=== PATIENT | male | born 1940 | race Caucasian/White ===

== ENCOUNTER 2019-09-21 17:12 | Inpatient (IN) | payer OTHER ==
[~2019-09-21] VITALS: Ht 172.7 cm; Wt 64.9 kg
--- NOTE | 2019-09-21 17:44 | NUR ---
Patient to ER bed 2 to gown for evaluation. Side rails up.
[2019-09-21 17:57] VITALS: BP_SYST 120
--- NOTE | 2019-09-21 17:58 | NUR ---
Patient arrived via ambulance from [facility] for low O2 sat, cough and congestion, confusion, and disorientation. Patient is awake, alert, and oriented x1. He has no complaints. All vital signs are WNL, on room air, no cough noted, all lung aguilar are clear.
--- NOTE | 2019-09-21 18:02 | NUR ---
ER Dr. Lopez at bedside examining patient.
[2019-09-21 18:10] LABS: BASOPHILS # (AUTO) 0.1 K/uL (0.0-0.2); BASOPHILS % (AUTO) 1.5 % (0.0-2.0); EOSINOPHILS # (AUTO) 0.2 K/uL (0.0-0.4); EOSINOPHILS % (AUTO) 2.1 % (0.0-4.0); HEMOGLOBIN 10.8 g/dL (14.0-18.0); LYMPHOCYTES # (AUTO) 3.4 K/uL (1.0-5.5); LYMPHOCYTES % (AUTO) 36.3 % (20.5-51.5); MEAN CORPUSCULAR HEMOGLOBIN 32 pg (27-31); MEAN CORPUSCULAR HGB CONC 34 % (32-36); MEAN CORPUSCULAR VOLUME 94 fL (79.0-98.0); MONOCYTES # (AUTO) 0.5 K/uL (0.0-1.0); MONOCYTES % (AUTO) 5.6 % (1.7-9.3); NEUTROPHILS # (AUTO) 5.2 K/uL (1.8-7.7); NEUTROPHILS % (AUTO) 54.5 % (40.0-70.0); PLATELET COUNT (AUTO) 269 K/uL (130-430); RED BLOOD CELL COUNT(AUTO) 3.42 MIL/uL (4.2-6.2); WHITE BLOOD COUNT (AUTO) 9.5 K/uL (4.8-10.8)
[2019-09-21 18:33] LABS: PROTHROMBIN TIME 9.9 SECS (9.5-12.5)
--- NOTE | 2019-09-21 19:11 | NUR ---
Report given to POOL Mckeon for continuation of care.
--- NOTE | 2019-09-21 19:25 | NUR ---
ASSUMED CARE. RECEIVED ALERT,VERBALLY RESPONSIVE,CONFUSED. AFEBRILE, NOT IN ACUTE DISTRESS. NO PAIN OR DISCOMFORT NOTED. VS STABLE. WILL CONTINUE TO MONITOR.
--- NOTE | 2019-09-21 19:42 | NUR ---
ADMITTED TO TELEMETRY IN-PATIENT STATUS FOR CHF,ELEVATED TROPONIN UNDER THE SERVICE OF . ADMITTING ORDERS GIVEN.
--- NOTE | 2019-09-21 19:45 | NUR ---
A/A/O X4.V/S STABLE.C/O PAIN ON HER IV SITE & D/C. TELE SHOWED SR.INSTRUCTED TO USE CALL LIGHT NEEDED;WITHIN REACH.
[2019-09-21 20:17] LABS: ANION GAP 10 (5-15); CALCIUM 9.7 mg/dL (8.4-11.0); CHLORIDE 104 mmol/L (98-107); CREATININE 1.46 mg/dL (0.55-1.30); SODIUM SERUM 139 mmol/L (136-145); UREA NITROGEN, BLOOD 22 mg/dL (8-21)
[2019-09-21] MEDS ORDERED: LEVO25TA7 PO (20:17)
[2019-09-21] MEDS ORDERED: CYAN100010 PO (20:18)
[2019-09-21] MEDS ORDERED: AMLO5TAB4 PO (20:18)
[2019-09-21] MEDS ORDERED: ASPI-1155 PO (20:18)
[2019-09-21] MEDS ORDERED: METO25TA6 PO (20:19)
[2019-09-21] MEDS ORDERED: LOSA50TA3 PO (20:20)
[2019-09-21] MEDS ORDERED: ACET-73 PO (20:20)
[2019-09-21] MEDS ORDERED: MOM PO (20:21)
[2019-09-21 20:22] LABS: ALANINE AMINOTRANSFERASE 17 U/L (12-78); ALBUMIN 3.1 g/dL (3.4-4.8); ASPARTATE AMINOTRANSFERASE 13 U/L (10-37); TOTAL BILIRUBIN 0.3 mg/dL (0.0-1.0)
[2019-09-21 20:25] LABS: GLUCOSE 32 mg/dL (70-99)
--- NOTE | 2019-09-21 20:28 | NUR ---
LAB.CALLED RE: BLOOD SUGAR=32. AWARE. GAUGE 18 IV LINE ESTABLISHED TO THE RIGHT FOREARM. D50 1 AMP.IVP GIVEN ORDERED.
[2019-09-21] MEDS ORDERED: IPRATROPIUM BROM 0.5 MG/2.5 ML VIAL.NEB (ATROVENT) INH ONE (20:30)
[2019-09-21] MEDS ORDERED: KCL 20 mEq in D5/0.45NS 1000mL 1,000 ML IV ONE (20:30)
[2019-09-21] MEDS ORDERED: ALBUTEROL SULFATE 0.083% 2.5 MG/3 ML VIAL.NEB INH ONE (20:30)
[2019-09-21] MEDS ORDERED: DEXTROSE 50% JECT 50 ML DISP.SYRIN IVP ONE (20:30)
[2019-09-21] MEDS ORDERED: methylPREDNISolone SOD SUCC/PF 62.5 MG/ML VIAL IVP ONE (20:30)
[2019-09-21] MEDS ORDERED: ONDA4TAB5 PO (20:30)
[2019-09-21] MEDS ORDERED: GUAI100L55 PO (20:30)
[2019-09-21] MEDS ORDERED: DEXTROSE 50% JECT 50 ML DISP.SYRIN ONE (20:39)
--- NOTE | 2019-09-21 20:42 | NUR ---
Noni devlin in [facility] - 09/21/19 at 2134 by [email or web address] ADMITTED TO TELEMETRY IN-PATIENT STATUS FOR CHF,ELEVATED TROPONIN UNDER THE SERVICE OF . ADMITTING ORDERS GIVEN.
[2019-09-21] MEDS ORDERED: ALBUTEROL SULFATE 0.083% 2.5 MG/3 ML VIAL.NEB INH PRN (20:45)
[2019-09-21] MEDS ORDERED: INSU100V42 (21:02)
[2019-09-21] MEDS ORDERED: INSU100V SQ (21:02)
[2019-09-21] MEDS ORDERED: DOCU-144 PO (21:05)
[2019-09-21] MEDS ORDERED: RISP0.253 PO (21:06)
[2019-09-21] MEDS ORDERED: MEMA10TA PO (21:07)
[2019-09-21] MEDS ORDERED: GLU850 PO (21:07)
[2019-09-21] MEDS ORDERED: DIPY50TA PO (21:08)
[2019-09-21] MEDS ORDERED: DIPH25CA83 PO (21:08)
[2019-09-21] MEDS ORDERED: ESCI10TA PO (21:09)
[2019-09-21] MEDS ORDERED: DONE10TA44 PO (21:09)
[2019-09-21] MEDS ORDERED: SIMV20TA2 PO (21:10)
[2019-09-21] MEDS ORDERED: NITSL SL (21:10)
--- NOTE | 2019-09-21 21:11 | NUR ---
Medication reconciliation completed with information provided by [facility]. Any prior medication reconciliation on file was reviewed and corrected.
[2019-09-21 21:31] VITALS: BP_SYST 112
--- NOTE | 2019-09-21 21:40 | NUR ---
PHENERGAN PO ADM. COUGHING PRODUCTIVELY WITH THICK YELLOWISH SECRETIONS.
--- NOTE | 2019-09-21 22:00 | NUR ---
IV INSERTED ON HER RIGHT WRIST WITH ANGIO#22 X 1.IVF NS @ 40 ML/HR INFUSING WELL.
--- NOTE | 2019-09-21 22:02 | NUR ---
TRANSFERRED TO FLOOR VIA [facility]. TRANSFER UNEVENTFUL. PT. WENT TO ROOM 106-A. REPORT GIVEN TO TELEMETRY NURSE FREDY LANZA.
--- NOTE | 2019-09-21 22:19 | NUR ---
FINGER STICK BLD SUGAR 110. IVF D51/2 NS +20 MEQ KCL/L @ 100 ML/HR INFUSING WELL.DENIES ANY DISCOMFORT @ THIS TIME. CALL LIGHT WITHIN REACH.
--- NOTE | 2019-09-21 22:25 | NUR ---
ADMIT NOTE Received pt from ER to the floor with a diagnosis of CHF, ELEVATED TORPONIN. Admission process initiated. patient oriented to pain management, safety and call light-Pt is forgetfull, unable to demonstrate.
[2019-09-21 22:27] VITALS: BP_SYST 141
[2019-09-21 22:45] VITALS: BP_SYST 132
[2019-09-21] MEDS ORDERED: cefTRIAXone 1 GM IVPB PREMIX 50 ML IV ONE (23:00)
[2019-09-21] MEDS: cefTRIAXone 1 GM IVPB PREMIX 50 ML IV SCH (23:02)
[2019-09-21] MEDS: NORMAL SALINE 5 ML DISP.SYRIN IVF SCH (23:10)
[2019-09-22] VITALS: BP_SYST 132
--- NOTE | 2019-09-22 | NUR ---
AFEBRILE.TELE SHOWED ATRIAL PACED. NOTED WITH NON PRODUCTIVE COUGH.
[2019-09-22] MEDS: ALBUTEROL SULFATE 0.083% 2.5 MG/3 ML VIAL.NEB INH SCH ×3 (01:12→13:34)
--- NOTE | 2019-09-22 02:00 | NUR ---
REPOSITIONED.FED PT & TOLERATED WELL.
--- NOTE | 2019-09-22 04:00 | NUR ---
RESTING COMFORTABLY IN NO ACUTE DISTRESS.IVF INFUSING WELL.
--- NOTE | 2019-09-22 04:08 | NUR ---
Consultation Paged Reason for Consultation: Elevated Troponin Was consult called: Y Person who was Notified: Marge Consulting Physician: Dr. Kruse Patient Portal Representative Ordering Physician: Dr. Amezquita
[2019-09-22] MEDS: NORMAL SALINE 5 ML DISP.SYRIN IVF SCH ×3 (06:00→20:35)
--- NOTE | 2019-09-22 06:00 | NUR ---
AM CARE DONE RN.REPOSITIONED.CALL LIGHT WITHIN REACH.
--- NOTE | 2019-09-22 07:01 | NUR ---
ENDORSED IN NO ACUTE DISTRESS.SAFETY MAINTAINED.NO S/S OF HYPO/HYPERGLYCEMIA NOTED.
--- NOTE | 2019-09-22 07:34 | NUR ---
Opening Note received bedside SBAR report from night worker RN, patient resting in bed, respiratory therapist at bedside giving patient breathing treatment, respirations even and unlabored, no acute distress noted, educated patient on use of call light and asked to call for assistance, patient verbalized understanding, call light in reach, bed in low and locked position, bed alarm on.
--- NOTE | 2019-09-22 07:40 | NUR ---
Opening Note Received report on pt. Pt is confused and trying to get out of bed. Provided education but pt unable to follow commands for a period of time. IV site intact, patent, with IVF infusing. No signs of acute distress noted.
--- NOTE | 2019-09-22 07:55 | NUR ---
Closing Note bedside SBAR report given to receiving RN, patient resting in bed, respirations even and unlabored on room air, no acute distress noted, educated patient on use of call light and asked to call for assistance, patient verbalized understanding, call light in reach, bed in low and locked position, bed alarm on, care endorsed to Nasrin LANZA.
[2019-09-22 08:00] VITALS: BP_SYST 137
[2019-09-22] MEDS ORDERED: ACETAMINOPHEN 500 MG TABLET PO PRN (08:30)
[2019-09-22] MEDS: risperiDONE 0.25 MG TABLET (RisperDAL) PO SCH ×2 (09:00→20:34)
--- NOTE | 2019-09-22 09:03 | NUR ---
Nutrition Update Gab Scale 15 noted. Pt admitted for CHF, elevated troponin. Diet: mechanical soft BMI: 22 kg/m2 RD to follow per nutrition care standards.
[2019-09-22] MEDS: D5/0.45 NS 1,000 ML IV SCH (10:00)
[2019-09-22] MEDS: CYANOCOBALAMIN 1000 mCg TABLET PO SCH (10:01)
[2019-09-22] MEDS: METOPROLOL TARTRATE 25 MG TABLET PO SCH (10:02)
[2019-09-22] MEDS: ASPIRIN 81 MG TAB.CHEW PO SCH (10:02)
[2019-09-22] MEDS: ENOXAPARIN SODIUM 40 MG/0.4 ML SYRINGE SUBCUT SCH (10:06)
[2019-09-22] MEDS ORDERED: D5W 1,000 ML IV PRN (10:32)
[2019-09-22] MEDS ORDERED: GLUCOSE 15 GM GEL (in 37.5 GM TUBE) PO PRN (10:45)
[2019-09-22] MEDS ORDERED: DEXTROSE 50% JECT 50 ML DISP.SYRIN IVP PRN (10:45)
--- NOTE | 2019-09-22 11:05 | NUR ---
Endorsed plan of care to receiving RN.
[2019-09-22 11:27] VITALS: BP_SYST 103
[2019-09-22 16:40] VITALS: BP_SYST 128
--- NOTE | 2019-09-22 18:05 | NUR ---
Patient appears to be repeating the same phrases frequently, is attempting to get out of bed frequently, and also is having swallowing problems with food or liquids. May need to have intravenous fluid rate adjustment for diagnosis of congestive heart failure. Will endorse care to night registered nurse. Maurice Cameron RN
[2019-09-22 19:00] VITALS: BP_SYST 125
--- NOTE | 2019-09-22 19:07 | NUR ---
Handoff with POOL Gaspar. Maurice Cameron RN
--- NOTE | 2019-09-22 19:15 | NUR ---
change of shift.pt.presents quiescent affect;calm.resting.pt.presents iv access.iv fluids infusing. pt's activity status:bedrest.general status stable.respiratory status;slightly labored.@room air. call light/telephone w/in reach of the pt.
[2019-09-22 20:00] VITALS: BP_SYST 125
--- NOTE | 2019-09-22 20:00 | NUR ---
pt.assessed.v/s assessed values w/in normal limits.pt.presents affect;restless.cardio monitor removed.pt.assessed for cleanliness. pt repositioned.iv access intact;patent iv fluids infusing.general status stable.respiratory status;labored@room air;02-sat% =96%.call light/telephone placed w/in reach of the pt.
--- NOTE | 2019-09-22 20:27 | NUR ---
PAGED I PAGED DR. FABI Méndez @ [phone] I SPOKE WITH JOSE M RDZ
--- NOTE | 2019-09-22 20:29 | NUR ---
PAGING DR DA SILVA. SPOKE WITH EXCHANGE-AWAITING FOR CALL BACK.
[2019-09-22] MEDS: SIMVASTATIN 20 MG TABLET PO SCH (20:34)
[2019-09-22] MEDS: cefTRIAXone 1 GM IVPB PREMIX 50 ML IV SCH (20:35)
--- NOTE | 2019-09-22 21:00 | NUR ---
2100p medications administered.pt.remains affect;restless.;k paged.re;restlessness/agitation. cardio-monitor re-applied.pt.repositioned.
--- NOTE | 2019-09-22 21:59 | NUR ---
PAGED I PAGED DR. FABI Méndez @ [phone] I SPOKE WITH JOSE M RDZ
--- NOTE | 2019-09-22 22:00 | NUR ---
pt.assessed.pt.presents affect;restless/agitation.;diogenes paged.re;restlessness/agitation.pt.assessed for cleanliness.pt.repositioned. iv access intact;patent.cardio-monitor re-applied.general status stable.respiratory status;labored.call light/ telephone placed w/in reach of the pt.
[2019-09-22] MEDS ORDERED: HALOPERIDOL LACTATE 5 MG/ML VIAL IM PRN (22:15)
[2019-09-22] MEDS ORDERED: HALOPERIDOL LACTATE 5 MG/ML VIAL IM ONE (22:15)
--- NOTE | 2019-09-22 22:30 | NUR ---
returned the page.i have apprised of the pt's status,affect;restless/agitation. has ordered aldol;5mg im x1/haldol;5mg im q-6hrs;p:restlessness/agitation.i have administered haldol;5mg im.to f/u re-asses the efficacy of the medication.
--- NOTE | 2019-09-22 22:33 | NUR ---
PAGED I PAGED DR. DUNLAP I SPOKE WITH JOSE M THIS IS THE THIRD CALL
[2019-09-22] MEDS ORDERED: INSULIN ASPART 100 UNITS/ML, 10 ML VIAL (NovoLOG) SUBCUT PRN (22:45)
--- NOTE | 2019-09-23 | NUR ---
pt.assessed.v/s assessed;values w/in normal limits.no c/o pain,nausea.pt.reoriented.cardio monitor re-applied. iv access intact;patent iv fluids infusing.pt assessed for cleanliness.pt.repositioned.general status stable. respiratory status;slightly labored.02-sat%=96%.call light/telephone placed w/in reach of the pt.
[2019-09-23] MEDS: ALBUTEROL SULFATE 0.083% 2.5 MG/3 ML VIAL.NEB INH SCH ×4 (00:31→19:45)
--- NOTE | 2019-09-23 01:30 | NUR ---
ROUNDS Patient is resting in bed, eyes closed, breathing evenly and nonlabored on room air. No s/s of distress at this time, no other needs at this time. Fall/safety precautions, will continue to monitor.
--- NOTE | 2019-09-23 02:00 | NUR ---
pt.assessed.pt.assessed for cleanliness.pt repositioned.iv access intact;patent.cardio monitor re-applied.iv access intact;patent iv fluids infusing.call light/telephone placed w/in reach of the pt.
[2019-09-23 02:36] VITALS: BP_SYST 125
--- NOTE | 2019-09-23 04:00 | NUR ---
pt.assessed.pt.assessed for cleanliness.pt.cleaned.pt.repositioned.cardio-monitor re-applied.no c/o pian,nausea.pt.presents affect;restless.loc;confused.iv access intact;patent;iv fluids infusing.general status stable.i have paged r/t to administer hhn-treatments.call light/telephone placed w/in reach of pt.
[2019-09-23] MEDS: NORMAL SALINE 5 ML DISP.SYRIN IVF SCH ×3 (05:42→21:36)
[2019-09-23] MEDS: D5/0.45 NS 1,000 ML IV SCH ×2 (05:42→23:45)
[2019-09-23] MEDS: LEVOTHYROXINE SODIUM 0.025 MG TABLET PO SCH (05:43)
[2019-09-23] MEDS: INSULIN LISPRO SLIDING SCALE 100 UNITS/ML VIAL (humaLOG) SUBCUT PRN ×3 (06:30→21:50)
--- NOTE | 2019-09-23 06:30 | NUR ---
pt.assessed.pt.assessed for cleanliness.pt.repositioned.i have assessed the blood glucose;value;169mg/dl.i have administered insulin:humalog;2-units.i have administered synthroid;0700a dose.pt.capble to ingest the medication whole w/out difficulty.no c/o pain,nausea.i have changed the iv fluids bag.general status stable.respiratory status stable; unlabored.call light/telephone placed w/in reach of the pt.
[2019-09-23 07:22] LABS: BASOPHILS % (AUTO) 0.4 % (0.0-2.0); EOSINOPHILS % (AUTO) 0.5 % (0.0-4.0); HEMATOCRIT 27.7 % (36-54); HEMOGLOBIN 9.4 g/dL (14.0-18.0); LYMPHOCYTES # (AUTO) 1.8 K/uL (1.0-5.5); LYMPHOCYTES % (AUTO) 19.7 % (20.5-51.5); MEAN CORPUSCULAR HEMOGLOBIN 32 pg (27-31); MEAN CORPUSCULAR HGB CONC 34 % (32-36); MEAN CORPUSCULAR VOLUME 93 fL (79.0-98.0); MONOCYTES # (AUTO) 0.8 K/uL (0.0-1.0); MONOCYTES % (AUTO) 9.1 % (1.7-9.3); NEUTROPHILS # (AUTO) 6.4 K/uL (1.8-7.7); NEUTROPHILS % (AUTO) 70.3 % (40.0-70.0); PLATELET COUNT (AUTO) 237 K/uL (130-430); RED BLOOD CELL COUNT(AUTO) 2.99 MIL/uL (4.2-6.2); RED CELL DISTRIBUTION WIDTH 14.2 % (9.0-15.0); WHITE BLOOD COUNT (AUTO) 9.2 K/uL (4.8-10.8)
[2019-09-23 07:59] LABS: ALANINE AMINOTRANSFERASE 27 U/L (12-78); ALBUMIN 2.9 g/dL (3.4-4.8); ANION GAP 7 (5-15); CALCIUM 9.1 mg/dL (8.4-11.0); CHLORIDE 105 mmol/L (98-107); CREATININE 1.48 mg/dL (0.55-1.30); GLUCOSE 185 mg/dL (70-99); POTASSIUM 4.4 mmol/L (3.5-5.1); SODIUM SERUM 138 mmol/L (136-145); THYROID STIMULATING HORMONE 1.72 uIu/mL (0.36-3.74); TOTAL BILIRUBIN 0.2 mg/dL (0.0-1.0); UREA NITROGEN, BLOOD 28 mg/dL (8-21)
[2019-09-23 08:05] LABS: ASPARTATE AMINOTRANSFERASE 71 U/L (10-37)
[2019-09-23] MEDS: METOPROLOL TARTRATE 25 MG TABLET PO SCH (09:00)
[2019-09-23 09:08] VITALS: BP_SYST 92
[2019-09-23] MEDS: risperiDONE 0.25 MG TABLET (RisperDAL) PO SCH ×2 (11:45→21:35)
[2019-09-23] MEDS: CYANOCOBALAMIN 1000 mCg TABLET PO SCH (11:45)
[2019-09-23] MEDS: ASPIRIN 81 MG TAB.CHEW PO SCH (11:45)
[2019-09-23] MEDS: ENOXAPARIN SODIUM 40 MG/0.4 ML SYRINGE SUBCUT SCH (11:47)
[2019-09-23 12:00] VITALS: BP_SYST 103
--- NOTE | 2019-09-23 15:01 | NUR ---
Dietitian Recommendations * Recommend mechanical soft, CCHO diet w/ nectar thick liquids and Glucerna BID (ONS provides 440 kcal/day, 20 gm protein/day) LP, RD Please refer to Nutrition Assessment for details. Addendum: 09/23/19 at [address] Amended: Links added.
[2019-09-23 16:25] VITALS: BP_SYST 98
--- NOTE | 2019-09-23 18:40 | NUR ---
closing notes no hypo hyperglycemic reaction noted. noted with on and off productive cough still. pt sleeping at intervals. no osb noted. bed to the lowest position . confused at intervals.
--- NOTE | 2019-09-23 19:45 | NUR ---
OPENING NOTES Received report from POOL Alfrde. Patient is sitting in bed, awake, alert, oriented x 1, breathing evenly and nonlabored on room air. Patient has an IV on the right forearm 18g, patent and benign, no s/s of infiltration or infection noted. Educated patient on plan of care, fall/safety precautions, need for a sitter, patient unable to state understanding due to cognitive limitations. Bed is locked, armed, and at lowest position. Will continue to monitor. Addendum: 09/24/19 at 0149 by Cole Gee RN OPENING NOTES Received report from POOL Alfred. Patient is resting in bed, awake, alert, oriented x 1, breathing evenly and nonlabored on room air. Patient has an IV on the right forearm 18g, patent and benign, no s/s of infiltration or infection noted. IVF running, patient is tolerating it well. Patient has a pacemaker. Educated patient on plan of care, fall/safety precautions, patient unable to state understanding due to cognitive limitations. Bed is locked, armed, and at lowest position. Will continue to monitor.
[2019-09-23 20:05] VITALS: BP_SYST 118
[2019-09-23] MEDS: SIMVASTATIN 20 MG TABLET PO SCH (21:35)
[2019-09-23] MEDS: cefTRIAXone 1 GM IVPB PREMIX 50 ML IV SCH (21:35)
--- NOTE | 2019-09-23 21:50 | NUR ---
MEDICATIONS/ROUNDS Patient is resting in bed, awake, breathing evenly and nonlabored on room air. Educated patient on due medications, patient unable to state understanding due to cognitive limitations. Administered due medications, patient tolerated it well. BS done, coverage needed. Fall/safety precautions, will continue to monitor.
--- NOTE | 2019-09-23 22:50 | NUR ---
MD ORDERS RECEIVED Spoke with Dr. Amezquita, reported that patient had an episode of epistaxis and has been coughing, MD ordered to hold all blood thinners and new medications prescribed.
[2019-09-23] MEDS ORDERED: COMMUNICATION ORDER XX ONE (23:00)
[2019-09-23] MEDS: PROMETHAZINE-DM 6.25 MG-15 MG/5 ML UDC PO PRN (23:45)
--- NOTE | 2019-09-23 23:45 | NUR ---
MEDICATIONS/ROUNDS Patient is resting in bed, awake, breathing evenly and nonlabored on room air. Educated patient on medications, patient unable to state understanding due to cognitive limitations. Administered medications, patient tolerated it well. BS done, coverage needed. Fall/safety precautions, will continue to monitor.
[2019-09-23] MEDS ORDERED: PROMETHAZINE-DM 6.25 MG-15 MG/5 ML UDC ONE (23:54)
[2019-09-24 00:17] VITALS: BP_SYST 136
[2019-09-24] MEDS: ALBUTEROL SULFATE 0.083% 2.5 MG/3 ML VIAL.NEB INH SCH ×4 (02:08→20:45)
--- NOTE | 2019-09-24 03:30 | NUR ---
ROUNDS Patient is resting in bed, eyes closed, breathing evenly and nonlabored on room air. No s/s of distress at this time, no other needs at this time. Fall/safety precautions.
--- NOTE | 2019-09-24 04:18 | NUR ---
FOLLOW UP CONSULT FOR SPOKE TO PANCHITO.
[2019-09-24] MEDS: LEVOTHYROXINE SODIUM 0.025 MG TABLET PO SCH (06:14)
[2019-09-24] MEDS: NORMAL SALINE 5 ML DISP.SYRIN IVF SCH ×3 (06:19→21:37)
--- NOTE | 2019-09-24 06:23 | NUR ---
CLOSING NOTES Patient is resting in bed, awake, breathing evenly and nonlabored on room air. Educated patient on medications, patient unable to state understanding due to cognitive limitations. Administered medications, patient tolerated it well. BS done, no coverage needed. Patient's IVF stopped, patient refused to connect back. Fall/safety precautions, will endorse care to morning shift RN. Addendum: 09/24/19 at 0638 by Cole Gee RN Patient's IVF stopped at 0500, patient refused to connect back.
--- NOTE | 2019-09-24 07:08 | NUR ---
OPENING NOTES PT RESTING IN BED. CHEST RISE AND FALL NOTED. PT ON ROOM AIR, NONLABORED BREATHING NOTED. IV LINE INTACT AND PATENT, NO SIGNS OF INFILTRATION. BED LOCKED AND IN LOWEST POSITION. ALL NEEDS MET. CALL LIGHT IN REACH. FALL AND ASPIRATION PRECAUTIONS IN PLACE. CONTINUE TO MONITOR.
[2019-09-24 07:54] VITALS: BP_SYST 125
--- NOTE | 2019-09-24 08:30 | NUR ---
PT SITTING ON EDGE OF BED EATING BREAKFAST, TOLERATING WELL. NO ACUTE DISTRESS NOTED. ALL NEEDS MET. CALL LIGHT IN REACH. CONTINUE TO MONITOR. Addendum: 09/24/19 at 0939 by Barby Murdock RN NOTE ON WRONG PATIENT
[2019-09-24] MEDS: risperiDONE 0.25 MG TABLET (RisperDAL) PO SCH ×2 (08:56→21:39)
[2019-09-24] MEDS: CYANOCOBALAMIN 1000 mCg TABLET PO SCH (08:56)
--- NOTE | 2019-09-24 08:56 | NUR ---
ROUTINE MEDS ROUTINE MEDS ADMINISTERED ORDERED PER MD, EDUCATION GIVEN, TOLERATED WELL. HOB ELEVATED. NO ACUTE DISTRESS NOTED. ALL NEEDS MET. CALL LIGHT IN REACH. CONTINUE TO MONITOR.
[2019-09-24] MEDS: METOPROLOL TARTRATE 25 MG TABLET PO SCH (08:57)
[2019-09-24] MEDS: NEOMY SULF/BACITRAC ZN/POLY 28 GM OINT..GM. TP SCH ×2 (09:00→21:37)
--- NOTE | 2019-09-24 09:00 | NUR ---
ASSISTED IN FEEDING FOR BREAKFAST, HOB ELEVATED, TOLERATED WELL. NO ACUTE DISTRESS NOTED. ALL NEEDS MET, CALL LIGHT IN REACH. FALL AND ASPIRATION PRECAUTIONS IN PLACE, CONTINUE TO MONITOR.
--- NOTE | 2019-09-24 09:47 | NUR ---
SEEN BY DR. DA SILVA AT BEDSIDE
--- NOTE | 2019-09-24 10:05 | NUR ---
SEEN BY DR. ELLISON AT BEDSIDE.
[2019-09-24] MEDS: INSULIN LISPRO SLIDING SCALE 100 UNITS/ML VIAL (humaLOG) SUBCUT PRN (11:12)
--- NOTE | 2019-09-24 11:15 | NUR ---
ACCUCHECK DONE, EDUCATION GIVEN, TOLERATED WELL. RESULT 185 MG/DL. INSULIN COVERAGE GIVEN, EDUCATION GIVEN, TOLERATED WELL. ALL NEEDS MET. CALL LIGHT IN REACH. CONTINUE TO MONITOR.
--- NOTE | 2019-09-24 11:21 | NUR ---
PERFORMED PERINEAL CARE WITH ASSIST FROM POOL DA SILVA. TOLERATED WELL. PT CLEAN AND DRY. ALL NEEDS MET. NO ACUTE DISTRESS NOTED. CALL LIGHT IN REACH. CONTINUE TO MONITOR.
[2019-09-24 12:00] VITALS: BP_SYST 117
--- NOTE | 2019-09-24 13:21 | NUR ---
ASSISTED PT WITH LUNCH. HOB ELEVATED. TOLERATED WELL. NO ACUTE DISTRESS NOTED. ALL NEEDS MET.CALL LIGHT IN REACH. CONTINUE TO MONITOR.
[2019-09-24 14:20] VITALS: BP_SYST 117
--- NOTE | 2019-09-24 15:00 | NUR ---
ROUNDS PT RESTING IN BED. CHEST RISE AND FALL NOTED. NONLABORED BREATHING NOTED. NO ACUTE DISTRESS NOTED. ALL NEEDS MET. CALL LIGHT IN REACH. CONTINUE TO MONITOR.
[2019-09-24 16:00] VITALS: BP_SYST 128
--- NOTE | 2019-09-24 16:26 | NUR ---
ACCUCHECK DONE, EDUCATION GIVEN, TOLERATED WELL. RESULT 98 MG/DL. NO INSULIN COVERAGE NEEDED. NO ACUTE DISTRESS NOTED. ALL NEEDS MET. CALL LIGHT IN REACH. HOB ELEVATED. WILL CONTINUE TO MONITOR.
--- NOTE | 2019-09-24 18:00 | NUR ---
ASSISTED PT WITH DINNER. HOB ELEVATED, TOLERATED WELL. NO ACUTE DISTRESS NOTED. ALL NEEDS MET, FALL AND ASPIRATION PRECAUTIONS IN PLACE. CALL LIGHT IN REACH. CONTINUE TO MONITOR.
--- NOTE | 2019-09-24 18:46 | NUR ---
CLOSING NOTES PT RESTING IN BED. CHEST RISE AND FALL NOTED, NONLABORED BREATHING NOTED. HOB ELEVATED. IV LINE INTACT AND PATENT, NO SIGNS OF INFILTRATION NOTED. PATIENT CLEAN AND DRY. BED LOCKED AND IN LOWEST POSITION. ALL NEEDS MET. FALL AND ASPIRATION PRECAUTIONS IN PLACE. CALL LIGHT IN REACH. WILL ENDORSE TO NOC NURSE.
[2019-09-24 20:22] VITALS: BP_SYST 135
--- NOTE | 2019-09-24 20:43 | NUR ---
Patient is awake verbally Responsive is fall RISK ON ROOM AIR chest movement symmetrical SAFETY MEASURES IMPLEMENTED .
--- NOTE | 2019-09-24 20:45 | NUR ---
NEBULIZER BREATHING TREATMENT administer HOB kept elevated Respirations Regular also unlabored .
[2019-09-24] MEDS: cefTRIAXone 1 GM IVPB PREMIX 50 ML IV SCH (21:37)
[2019-09-24] MEDS: SIMVASTATIN 20 MG TABLET PO SCH (21:38)
[2019-09-24] MEDS: PROMETHAZINE-DM 6.25 MG-15 MG/5 ML UDC PO PRN (21:38)
[2019-09-24] MEDS: QUEtiapine FUMARATE 25 MG TABLET PO SCH (21:38)
--- NOTE | 2019-09-24 23:26 | NUR ---
PHENERGAN DM10 PO administer for COUGH & HELPFUL , patient Resting .
--- NOTE | 2019-09-24 23:28 | NUR ---
DR AVINASH WALTERS HOLD ALL BLOOD THINNERS no EPISTAXIS noted continue to monitor .
[2019-09-25] MEDS: ALBUTEROL SULFATE 0.083% 2.5 MG/3 ML VIAL.NEB INH SCH ×4 (00:08→19:47)
[2019-09-25 01:26] VITALS: BP_SYST 37
--- NOTE | 2019-09-25 04:17 | NUR ---
FALL MEASURES implemented PATIENT CLIMBS OUT OF BED FREQUENT REDIRECT as needed & PRN .
[2019-09-25] MEDS: NORMAL SALINE 5 ML DISP.SYRIN IVF SCH ×3 (05:51→20:53)
[2019-09-25] MEDS: LEVOTHYROXINE SODIUM 0.025 MG TABLET PO SCH (05:52)
[2019-09-25 06:26] LABS: BASOPHILS % (AUTO) 0.2 % (0.0-2.0); EOSINOPHILS # (AUTO) 0.3 K/uL (0.0-0.4); EOSINOPHILS % (AUTO) 3.6 % (0.0-4.0); HEMOGLOBIN 10.5 g/dL (14.0-18.0); LYMPHOCYTES # (AUTO) 1.8 K/uL (1.0-5.5); LYMPHOCYTES % (AUTO) 23.6 % (20.5-51.5); MEAN CORPUSCULAR HEMOGLOBIN 32 pg (27-31); MEAN CORPUSCULAR HGB CONC 34 % (32-36); MEAN CORPUSCULAR VOLUME 94 fL (79.0-98.0); MONOCYTES # (AUTO) 0.7 K/uL (0.0-1.0); MONOCYTES % (AUTO) 9.6 % (1.7-9.3); NEUTROPHILS # (AUTO) 4.8 K/uL (1.8-7.7); PLATELET COUNT (AUTO) 263 K/uL (130-430); RED CELL DISTRIBUTION WIDTH 14.1 % (9.0-15.0); WHITE BLOOD COUNT (AUTO) 7.7 K/uL (4.8-10.8)
[2019-09-25 06:35] LABS: ANION GAP 9 (5-15); CALCIUM 9.1 mg/dL (8.4-11.0); CHLORIDE 106 mmol/L (98-107); CREATININE 1.09 mg/dL (0.55-1.30); GLUCOSE 121 mg/dL (70-99); POTASSIUM 3.9 mmol/L (3.5-5.1); SODIUM SERUM 139 mmol/L (136-145); UREA NITROGEN, BLOOD 16 mg/dL (8-21)
--- NOTE | 2019-09-25 07:10 | NUR ---
Received patient and report from [facility] shift nurse. Patient sleeping in no acute distress.
[2019-09-25 08:00] VITALS: BP_SYST 128
--- NOTE | 2019-09-25 09:10 | NUR ---
Patient awake, alert. Feeding patient 1 to 1 with HOB upright at 90 degrees. Denies pain.
[2019-09-25] MEDS: METOPROLOL TARTRATE 25 MG TABLET PO SCH (09:34)
[2019-09-25] MEDS: CYANOCOBALAMIN 1000 mCg TABLET PO SCH (09:34)
[2019-09-25] MEDS: risperiDONE 0.25 MG TABLET (RisperDAL) PO SCH (09:35)
[2019-09-25] MEDS: NEOMY SULF/BACITRAC ZN/POLY 28 GM OINT..GM. TP SCH ×2 (09:35→21:00)
[2019-09-25] MEDS: QUEtiapine FUMARATE 25 MG TABLET PO SCH ×3 (09:35→20:56)
[2019-09-25] MEDS: D5/0.45 NS 1,000 ML IV SCH ×2 (09:36→16:28)
--- NOTE | 2019-09-25 11:10 | NUR ---
Gave patient bed bath per request with mike and skin care. Changed bed linen. Patient tolerated bed bath well. Denies pain, in no acute distress.
[2019-09-25] MEDS: INSULIN LISPRO SLIDING SCALE 100 UNITS/ML VIAL (humaLOG) SUBCUT PRN ×2 (11:36→20:58)
[2019-09-25 12:00] VITALS: BP_SYST 143
--- NOTE | 2019-09-25 13:10 | NUR ---
Patient awake, alert. Assisted patient in feeding 1 to 1 with HOB above 90 degrees. Tolerated feeding well.
--- NOTE | 2019-09-25 15:10 | NUR ---
Performed mike care after patient had urine output, patient tolerated mike care well.
[2019-09-25 16:00] VITALS: BP_SYST 159
--- NOTE | 2019-09-25 18:54 | NUR ---
CONSULTATION PAGED/CALLED Reason for Consultation: pneumonia Person Who was Notified: chelsy Consulting Physician: keesha Assistant Operations Manager Specialty: pulmo Ordering Physician: celestine
--- NOTE | 2019-09-25 19:16 | NUR ---
recieved from ct scan department for ct scan of the head via mark.fixed in bned and made comfortable
[2019-09-25 19:57] VITALS: BP_SYST 143
[2019-09-25] MEDS: SIMVASTATIN 20 MG TABLET PO SCH (20:56)
[2019-09-25] MEDS: PROMETHAZINE-DM 6.25 MG-15 MG/5 ML UDC PO PRN (21:17)
[2019-09-25] MEDS ORDERED: PIPERACILLIN/TAZOBACTAM 4.5 GM/VIAL (ZOSYN) IV ONE (21:25)
[2019-09-25] MEDS: PIPERACILLIN/TAZO 4.5GM/DEX-IS 100 ML IV SCH (22:00)
--- NOTE | 2019-09-25 23:00 | NUR ---
TRANSFER OF CARE Received report from POOL Anderson. Patient is resting in bed, eyes closed, breathing evenly and nonlabored on room air. Patient has an IV on the right forearm 18g SL, patent and benign, no s/s of infiltration or infection noted. Vital signs stable, no s/s of distress at this time, no other needs at this time. Bed is locked, armed, and at lowest position. Will continue to monitor.
[2019-09-25 23:35] VITALS: BP_SYST 103
[2019-09-26] MEDS: ALBUTEROL SULFATE 0.083% 2.5 MG/3 ML VIAL.NEB INH SCH (01:17)
--- NOTE | 2019-09-26 01:30 | NUR ---
ROUNDS Patient is resting in bed, eyes closed, breathing evenly and nonlabored, patient is currently receiving his breathing treatment. No s/s of distress at this time, no other needs at this time. Fall/safety precautions, will continue to monitor.
[2019-09-26] MEDS: PROMETHAZINE-DM 6.25 MG-15 MG/5 ML UDC PO PRN (02:25)
--- NOTE | 2019-09-26 02:29 | NUR ---
MEDICATIONS/ROUNDS Patient is resting in bed, awake, breathing evenly and nonlabored on room air. Patient continues to cough, educated patient on cough medication, patient unable to state understanding due to cognitive limitations. Administered medication, patient tolerated it well. Fall/safety/aspiration precautions, will continue to monitor.
[2019-09-26] MEDS: NORMAL SALINE 5 ML DISP.SYRIN IVF SCH ×3 (05:55→21:12)
[2019-09-26] MEDS: PIPERACILLIN/TAZO 4.5GM/DEX-IS 100 ML IV SCH ×3 (05:58→21:08)
[2019-09-26] MEDS: LEVOTHYROXINE SODIUM 0.025 MG TABLET PO SCH (06:00)
--- NOTE | 2019-09-26 06:11 | NUR ---
CLOSING NOTES Patient is resting in bed, awake, breathing evenly and nonlabored on room air. Educated patient on medications, patient unable to state understanding due to cognitive limitations. Administered medications, patient tolerated it well. BS done, no coverage needed. Fall/safety/aspiration precautions, will endorse care to morning shift RN. Addendum: 09/26/19 at 0612 by Cole Gee RN hygiene care performed
[2019-09-26 06:39] LABS: ANION GAP 7 (5-15); CALCIUM 9.3 mg/dL (8.4-11.0); CHLORIDE 108 mmol/L (98-107); CREATININE 1.17 mg/dL (0.55-1.30); GLUCOSE 127 mg/dL (70-99); POTASSIUM 3.7 mmol/L (3.5-5.1); SODIUM SERUM 139 mmol/L (136-145); UREA NITROGEN, BLOOD 14 mg/dL (8-21)
[2019-09-26 06:40] LABS: BASOPHILS % (AUTO) 0.3 % (0.0-2.0); EOSINOPHILS # (AUTO) 0.3 K/uL (0.0-0.4); EOSINOPHILS % (AUTO) 3.1 % (0.0-4.0); HEMATOCRIT 33.1 % (36-54); HEMOGLOBIN 11.2 g/dL (14.0-18.0); LYMPHOCYTES # (AUTO) 1.9 K/uL (1.0-5.5); LYMPHOCYTES % (AUTO) 22.3 % (20.5-51.5); MEAN CORPUSCULAR HEMOGLOBIN 32 pg (27-31); MEAN CORPUSCULAR HGB CONC 34 % (32-36); MEAN CORPUSCULAR VOLUME 94 fL (79.0-98.0); MONOCYTES # (AUTO) 0.8 K/uL (0.0-1.0); MONOCYTES % (AUTO) 9.4 % (1.7-9.3); NEUTROPHILS # (AUTO) 5.4 K/uL (1.8-7.7); NEUTROPHILS % (AUTO) 64.9 % (40.0-70.0); PLATELET COUNT (AUTO) 291 K/uL (130-430); RED BLOOD CELL COUNT(AUTO) 3.54 MIL/uL (4.2-6.2); WHITE BLOOD COUNT (AUTO) 8.3 K/uL (4.8-10.8)
--- NOTE | 2019-09-26 07:21 | NUR ---
Received report and patient from [facility] shift nurse. Patient in bed sleeping with side rails x 3 up. Call light with in reach. In no acute distress. Breathing even and unlabored.
[2019-09-26] MEDS: IPRATROPIUM/ALBUTEROL SULFATE 3 ML AMPUL.NEB (DUONEB) INH SCH ×3 (07:43→20:25)
[2019-09-26 08:00] VITALS: BP_SYST 137
[2019-09-26] MEDS: QUEtiapine FUMARATE 25 MG TABLET PO SCH ×3 (08:44→21:07)
[2019-09-26] MEDS: CYANOCOBALAMIN 1000 mCg TABLET PO SCH (08:44)
[2019-09-26] MEDS: NEOMY SULF/BACITRAC ZN/POLY 28 GM OINT..GM. TP SCH ×2 (08:44→21:10)
[2019-09-26] MEDS: METOPROLOL TARTRATE 25 MG TABLET PO SCH (08:44)
[2019-09-26] MEDS: INSULIN LISPRO SLIDING SCALE 100 UNITS/ML VIAL (humaLOG) SUBCUT PRN ×2 (11:57→17:39)
[2019-09-26 12:00] VITALS: BP_SYST 126
[2019-09-26 16:00] VITALS: BP_SYST 134
--- NOTE | 2019-09-26 19:25 | NUR ---
CHANGE OF SHIFT; pt. sleeping when received. no distress noted. on fall risk precautions. pt. room close to nurses station.will reassess later.
--- NOTE | 2019-09-26 20:30 | NUR ---
NOTES: pt. awakened, able to answer simple commands, knows his name and birthday. VS checked. noted left side weakness with slight contraction on left upper arm. IV lock on rt. forearm. on cardia monitor and shows paced rhythm 100%.
[2019-09-26 21:00] VITALS: BP_SYST 154
[2019-09-26] MEDS: SIMVASTATIN 20 MG TABLET PO SCH (21:07)
--- NOTE | 2019-09-26 21:30 | NUR ---
NOTES: pt. incontinent , mike care done with LIBRARY ASSOCIATE and kept dry, po meds crushed with apple sauce and able to swallow. keep HOB elevated.
[2019-09-27] VITALS (7 sets, daily range): BP systolic 104–150
--- NOTE | 2019-09-27 | NUR ---
NOTES: pt. checked and made rounds, sleeping comfortably. for further observation.
--- NOTE | 2019-09-27 02:30 | NUR ---
NOTES: condition unchanged, continue to monitor. remain sleeping.
--- NOTE | 2019-09-27 04:30 | NUR ---
NOTES: pt. position not aligned, repositioned. been coughing up non productive to productive cough, suctioned orally.
[2019-09-27] MEDS: PIPERACILLIN/TAZO 4.5GM/DEX-IS 100 ML IV SCH ×3 (05:10→22:25)
[2019-09-27] MEDS: NORMAL SALINE 5 ML DISP.SYRIN IVF SCH ×3 (05:17→22:25)
--- NOTE | 2019-09-27 05:40 | NUR ---
NOTES: partial am care/mike care, incontinent of urine. repositioned and pulled up in bed. IVF patent.
[2019-09-27] MEDS: LEVOTHYROXINE SODIUM 0.025 MG TABLET PO SCH (06:33)
--- NOTE | 2019-09-27 06:40 | NUR ---
CLOSING NOTES; pt. suctioned orally. IVF patent. repositioned. for further care and assistance. on fall risk precautions, bed alarm on. no distress. will endorse to day shift.
[2019-09-27] MEDS: IPRATROPIUM/ALBUTEROL SULFATE 3 ML AMPUL.NEB (DUONEB) INH SCH ×3 (06:58→21:04)
--- NOTE | 2019-09-27 07:10 | NUR ---
Received patient and endorsed from [facility] shift nurse. Patient in bed, sleeping, side rails x 3 up. Call light with in reach. Breathing even and unlabored. In no acute distress. Denies pain.
[2019-09-27] MEDS: QUEtiapine FUMARATE 25 MG TABLET PO SCH ×2 (08:25→14:20)
[2019-09-27] MEDS: CYANOCOBALAMIN 1000 mCg TABLET PO SCH (08:25)
[2019-09-27] MEDS: METOPROLOL TARTRATE 25 MG TABLET PO SCH (08:25)
[2019-09-27] MEDS: NEOMY SULF/BACITRAC ZN/POLY 28 GM OINT..GM. TP SCH ×2 (08:26→22:27)
--- NOTE | 2019-09-27 12:30 | NUR ---
Performed [facility] bath on patient and went over surgery checklist. Addendum: 09/27/19 at 1710 by Nayeli Laura RN Error. Incorrect patient.
--- NOTE | 2019-09-27 13:05 | NUR ---
Patient left room via claudia with OR nurse to surgery. Addendum: 09/27/19 at 1708 by Nayeli Laura RN Note Error. incorrect patient.
--- NOTE | 2019-09-27 17:35 | NUR ---
Paged MD Amezquita.
--- NOTE | 2019-09-27 17:53 | NUR ---
MD Amezquita called back. Informed MD Amezquita patient's decrease appetite, patient arousable only to deep stimuli only, rhonchi present in all anterior lung sounds. New order stat labs CBC, BMP, BNP, ABG, cancel sliding scale and finger glucose checks, D5 1/2 NS at 60 cc an hour, NPO, speech swallow eval tomorrow morning. Speech therapist Anjelica nowak. Orders placed.
[2019-09-27] MEDS: D5/0.45 NS 1,000 ML IV SCH (18:10)
[2019-09-27 18:25] LABS: BASOPHILS % (AUTO) 0.3 % (0.0-2.0); EOSINOPHILS # (AUTO) 0.2 K/uL (0.0-0.4); EOSINOPHILS % (AUTO) 2.8 % (0.0-4.0); HEMATOCRIT 31.7 % (36-54); HEMOGLOBIN 10.7 g/dL (14.0-18.0); LYMPHOCYTES # (AUTO) 1.4 K/uL (1.0-5.5); LYMPHOCYTES % (AUTO) 16.4 % (20.5-51.5); MEAN CORPUSCULAR HEMOGLOBIN 31 pg (27-31); MEAN CORPUSCULAR HGB CONC 34 % (32-36); MEAN CORPUSCULAR VOLUME 93 fL (79.0-98.0); MONOCYTES # (AUTO) 0.6 K/uL (0.0-1.0); MONOCYTES % (AUTO) 7.4 % (1.7-9.3); NEUTROPHILS # (AUTO) 6.1 K/uL (1.8-7.7); NEUTROPHILS % (AUTO) 73.1 % (40.0-70.0); PLATELET COUNT (AUTO) 286 K/uL (130-430); RED BLOOD CELL COUNT(AUTO) 3.41 MIL/uL (4.2-6.2); RED CELL DISTRIBUTION WIDTH 14.2 % (9.0-15.0); WHITE BLOOD COUNT (AUTO) 8.3 K/uL (4.8-10.8)
[2019-09-27 18:28] LABS: ANION GAP 5 (5-15); CALCIUM 9.4 mg/dL (8.4-11.0); CHLORIDE 107 mmol/L (98-107); CREATININE 1.51 mg/dL (0.55-1.30); GLUCOSE 172 mg/dL (70-99); POTASSIUM 3.8 mmol/L (3.5-5.1); SODIUM SERUM 138 mmol/L (136-145); UREA NITROGEN, BLOOD 20 mg/dL (8-21)
--- NOTE | 2019-09-27 18:59 | NUR ---
Paged MD Amezquita.
--- NOTE | 2019-09-27 19:15 | NUR ---
Endorsed patient and gave report to NOC shift nurse. Denies pain. Patient in no acute distress. Breathing even and unlabored. Call light with in reach. Side rails x 3 up.
--- NOTE | 2019-09-27 19:28 | NUR ---
MD Amezquita called back, informed STAT CBC, BMP, ABG, BNP results. No new orders.
--- NOTE | 2019-09-27 19:41 | NUR ---
MD Amezquita assessed patient, new order CT scan of head with out contrast, MD Jacobo consult for neurology, discontinue Seroquel and Phenergan. Orders placed. Endorsed information to NOC shift nurse. NOC shift nurse stated will page for consult.
--- NOTE | 2019-09-27 20:01 | NUR ---
CONSULTATION PAGED/CALLED Reason for Consultation: AMS Person Who was Notified: SPOKE WITH NAVID FROM DR. WALTON EXCHANGE Consulting Physician: Bench Worker Apprentice Specialty: NEURO Ordering Physician:
--- NOTE | 2019-09-27 20:15 | NUR ---
DR AVINASH WALTERS HERE TO SEE PATIENT NEW ORDERS OBTAINED , PATIENT TO BE NPO .
--- NOTE | 2019-09-27 20:16 | NUR ---
CONSULTATION PAGED/CALLED Reason for Consultation: SWALLOW EVAL Person Who was Notified: LEFT MESSAGE WITH LAMBERT SPEECH THER[facility] Consulting Physician:LAMBERT Graphic Artist Specialty: SPEECH THERAPY Ordering Physician:
[2019-09-27] MEDS: SIMVASTATIN 20 MG TABLET PO SCH (21:00)
--- NOTE | 2019-09-27 21:35 | NUR ---
SPOKE WITH RADIOLOGY DEPT REGARDING CT SCAN , NO TECH FOR PROCEDURE THERE @ THIS TIME JHOAN STATED , THIS AM 0830 .
--- NOTE | 2019-09-28 01:14 | NUR ---
TURNING & REPOSITION OFF LOADING WITH PILLOWS COMFORT MEASURES IMPLEMENTED HOB KEPT ELEVATED CHEST MOVEMENT SYMMETRICAL ALSO UNLABORED skin dry warm .
[2019-09-28] MEDS: LEVOTHYROXINE SODIUM 0.025 MG TABLET PO SCH (05:20)
[2019-09-28] MEDS: NORMAL SALINE 5 ML DISP.SYRIN IVF SCH ×3 (05:20→20:55)
[2019-09-28] MEDS: PIPERACILLIN/TAZO 4.5GM/DEX-IS 100 ML IV SCH ×3 (05:20→20:54)
--- NOTE | 2019-09-28 05:27 | NUR ---
DR SHANELL WALTERS HERE TO SEE PATIENT & @ THE BEDSIDE .
[2019-09-28] MEDS: METOPROLOL TARTRATE 25 MG TABLET PO SCH (09:00)
[2019-09-28] MEDS: NEOMY SULF/BACITRAC ZN/POLY 28 GM OINT..GM. TP SCH ×2 (09:00→20:55)
[2019-09-28] MEDS: CYANOCOBALAMIN 1000 mCg TABLET PO SCH (09:00)
--- NOTE | 2019-09-28 10:45 | NUR ---
Note Pt curled up in bed with IVF's infusing well through right forearm IV site. No SOB/resp distress or chest pain/discomfort noted at this time. Tele unit attached and intact at this time. Pt next to nurses' station for close observation for needs and care. Pt NPO at this time due to difficulty swallowing and eating. Swallow evaluation was done 2X on pt since admission to floor. No needs noted at this time. Call light within reach.
[2019-09-28] MEDS: IPRATROPIUM/ALBUTEROL SULFATE 3 ML AMPUL.NEB (DUONEB) INH SCH ×2 (11:05→15:58)
[2019-09-28 12:35] VITALS: BP_SYST 145
[2019-09-28] MEDS: D5/0.45 NS 1,000 ML IV SCH (14:36)
--- NOTE | 2019-09-28 14:50 | NUR ---
Nutrition F/U RD reviewed pt's current EMR record including diet Hx, physician notes, nursing notes, pertinent labs/meds/procedures, care trends, and care activity. Admission Dx: CHF, elevated troponin PMH: DM, HTN, HLD per physician notes Current Diet Order/Nutrition Support: NPO x0 days Subjective Info: Pt was seen resting in bed, seemingly confused, pending swallow eval this afternoon per RN report. Pt reported feeling hungry. Current % PO 39% average x9 meals -- poor Estimated Energy Expenditure (kcals/day) 4928-5480 kcal/day (25-30 kcal/kg CBW for geriatric maintenance) Estimated Protein Required (g/day) 66-79 gm/day (1-1.2 gm/kg CBW for geriatric maintenance) Estimated Fluid Required (l/day) Per physician d/t CHF Problem/Etiology/Signs/Symptoms Inadequate nutritional intakes related to possible chewing/swallowing difficulty and lack of appetite as evidenced by fair PO intake records. *ongoing Altered nutrition-related labs related to endocrine dysfunction as evidenced by elevated BG and POC BG lab values. *ongoing Expected Outcomes/Goals - Monitor appetite and PO intakes w/ goal of pt meeting at least 75% of estimated nutritional needs, labs trending WNL, normal GI function, and skin integrity/wt maintenance Dietitian Recommendations * Consider diet advancement upon ST swallow eval rec Follow Up High Risk: F/U in 2-3 days
--- NOTE | 2019-09-28 14:55 | NUR ---
Dietitian Recommendations * Consider diet advancement upon ST swallow eval rec LP, RD Please refer to Nutrition F/U for details.
--- NOTE | 2019-09-28 15:32 | NUR ---
S.T. SWALLOW EVAL SWALLOW EVAL COMPLETED. PT PRESENTS W/ MOD OROPHARYNGEAL DYSPHAGIA CHARACTERIZED BY IMPAIRED MASTICATION AND SIGNIFICANT COUGHING ON THIN LIQUIDS INDICATING RISK FOR ASPIRATION. REC: PUREE DIET. THICKENED LIQUIDS ( NECTAR CONSISTENCY). NURSE CORNELIA NOTIFIED.
--- NOTE | 2019-09-28 16:30 | NUR ---
Note Pt has IVF's infusing well through right forearm IV site. No needs noted at this time. Pt next to nurses' station for close observation for needs and care. Call light within reach.
[2019-09-28 16:36] VITALS: BP_SYST 109
--- NOTE | 2019-09-28 18:15 | NUR ---
Note Pt resting in bed, sister at bedside. No SOB/resp distress or pain/discomfort noted at this time. Tele unit attached and intact all shift. Pt was checked on q1' and PRN all shift for needs and care. IV in right hand intact and patent infusing IVF's well. No needs noted at this time. Call light within reach. 2 drains from right side of abdomen intact and draining. No needs noted at this time. Call light within reach. Addendum: 09/28/19 at 1822 by Silke Cruz RN wrong documentation on patient.
--- NOTE | 2019-09-28 18:25 | NUR ---
Note Pt resting in bed with IV in right hand intact and patent infusing IVF's well. Pt next to nurses' station for close observation for needs and care. Pt was checked on q1' and PRN all shift for needs and care. No SOB/resp distress or pain/discomfort noted all shift. Tele unit attached and intact all shift. No needs noted at this time. Pt has bad coughing at this time, dinner held due to possible aspiration at this time. No needs noted at this time. Call light within reach.
--- NOTE | 2019-09-28 18:35 | NUR ---
Note Dr Jacobo on the floor to assess pt and write orders.
--- NOTE | 2019-09-28 19:30 | NUR ---
INITIAL NOTES Received handoff report from offgoing nurse at the bedside. Patient is awake and alert, confused. Patient swung his legs over the side rails. Educated patient not to do that, and to stay in bed. Patient is confused, stating that he wants to go home and that his car is parked outside. Educated patient informing him that he is currently in the hospital. Patient verbalizes understanding. Bed is locked, lowest position, 2x side rails up, bed alarm is on. Call light is within reach. Encouraged patient to call for assistance. Will continue with plan of care.
[2019-09-28 20:00] VITALS: BP_SYST 130
[2019-09-28] MEDS: SIMVASTATIN 20 MG TABLET PO SCH ×2 (20:55→20:59)
--- NOTE | 2019-09-28 21:51 | NUR ---
PAGING DR DA SILVA. SPOKE WITH MARCELINO. AWAITING FOR CALL BACK. PATIENT STATED "I NEEDS HELP SLEEPING, I DON'T KNOW HOW TO SLEEP." COMFORT MEASURES, QUIET ENVIRONMENT, AND TURNING OFF THE LIGHT DID NOT HELP THE PATIENT SLEEP.
--- NOTE | 2019-09-28 22:05 | NUR ---
DR DA SILVA CALLED THE NURSES STATION. INFORMED HIM THAT THE PATIENT IS HAVING DIFFICULTY SLEEPING. ORDERED TRAZODONE 50MG QHSP FOR INSOMNIA.
[2019-09-28] MEDS ORDERED: traZODone HCL 50 MG TABLET (DESYREL) PO PRN (22:15)
[2019-09-28] MEDS: guaiFENesin/DEXTROMETHORPHAN 10 ML UDC PO PRN (22:28)
--- NOTE | 2019-09-29 | NUR ---
Resting comfortably in bed, eyes closed. Breathing even and unlabored with visible chest rise and fall noted. No SOB, no acute distress, no signs of pain or facial grimacing noted. Call light within reach.
[2019-09-29 01:29] VITALS: BP_SYST 130
--- NOTE | 2019-09-29 02:52 | NUR ---
Patient is in bed, tossing and turning. States that it is cold. provided patient with more blankets per patient request.
[2019-09-29 03:43] VITALS: BP_SYST 106
--- NOTE | 2019-09-29 05:00 | NUR ---
provided patient with warm blankets per patient request.
[2019-09-29] MEDS: D5/0.45 NS 1,000 ML IV SCH ×2 (05:52→21:21)
[2019-09-29] MEDS: LEVOTHYROXINE SODIUM 0.025 MG TABLET PO SCH (05:53)
[2019-09-29] MEDS: PIPERACILLIN/TAZO 4.5GM/DEX-IS 100 ML IV SCH ×3 (05:53→21:22)
[2019-09-29] MEDS: NORMAL SALINE 5 ML DISP.SYRIN IVF SCH ×3 (05:54→21:22)
--- NOTE | 2019-09-29 06:53 | NUR ---
initial notes Patient resting comfortably in bed, eyes closed breathing even and unlabored with visible chest rise and fall noted. no sob, no acute distress, no signs of pain or facial grimacing noted. bed is locked, lowest position, 2x side rails up, bed alarm is on. call light within reach. fall and safety precautions maintained. all needs have been met during this shift. will endorse care to oncoming dayshift nurse. Addendum: 09/29/19 at 0655 by Aurelia Salgado RN correction closing notes Patient resting comfortably in bed, eyes closed breathing even and unlabored with visible chest rise and fall noted. no sob, no acute distress, no signs of pain or facial grimacing noted. bed is locked, lowest position, 2x side rails up, bed alarm is on. call light within reach. fall and safety precautions maintained. all needs have been met during this shift. will endorse care to oncoming dayshift nurse.
[2019-09-29 07:25] LABS: BASOPHILS % (AUTO) 0.3 % (0.0-2.0); EOSINOPHILS # (AUTO) 0.4 K/uL (0.0-0.4); EOSINOPHILS % (AUTO) 4.4 % (0.0-4.0); HEMATOCRIT 28.3 % (36-54); HEMOGLOBIN 9.5 g/dL (14.0-18.0); LYMPHOCYTES # (AUTO) 1.8 K/uL (1.0-5.5); LYMPHOCYTES % (AUTO) 21.3 % (20.5-51.5); MEAN CORPUSCULAR HEMOGLOBIN 31 pg (27-31); MEAN CORPUSCULAR HGB CONC 34 % (32-36); MEAN CORPUSCULAR VOLUME 93 fL (79.0-98.0); MONOCYTES # (AUTO) 0.8 K/uL (0.0-1.0); MONOCYTES % (AUTO) 9.3 % (1.7-9.3); NEUTROPHILS # (AUTO) 5.6 K/uL (1.8-7.7); NEUTROPHILS % (AUTO) 64.7 % (40.0-70.0); PLATELET COUNT (AUTO) 265 K/uL (130-430); RED BLOOD CELL COUNT(AUTO) 3.05 MIL/uL (4.2-6.2); RED CELL DISTRIBUTION WIDTH 13.9 % (9.0-15.0); WHITE BLOOD COUNT (AUTO) 8.7 K/uL (4.8-10.8)
[2019-09-29 07:28] LABS: ANION GAP 8 (5-15); CALCIUM 8.8 mg/dL (8.4-11.0); CHLORIDE 106 mmol/L (98-107); CREATININE 1.19 mg/dL (0.55-1.30); GLUCOSE 173 mg/dL (70-99); POTASSIUM 3.3 mmol/L (3.5-5.1); SODIUM SERUM 140 mmol/L (136-145); UREA NITROGEN, BLOOD 12 mg/dL (8-21)
[2019-09-29] MEDS: IPRATROPIUM/ALBUTEROL SULFATE 3 ML AMPUL.NEB (DUONEB) INH SCH ×3 (07:35→22:09)
[2019-09-29 08:00] VITALS: BP_SYST 125
--- NOTE | 2019-09-29 08:00 | NUR ---
Note Pt was assisted in sitting up in bed to eat breakfast. No SOB/resp distress or severe pain/discomfort noted at this time. IV in right hand intact and patent infusing IVF's well. No needs noted at this time. Pt next to nurses' station for close observation for needs and care. Call light within reach.
[2019-09-29] MEDS: METOPROLOL TARTRATE 25 MG TABLET PO SCH (08:35)
--- NOTE | 2019-09-29 08:35 | NUR ---
Note Pt was having continuos coughing for a while PO medications were held at this time. Pt resting in bed. Call light within reach.
[2019-09-29] MEDS: CYANOCOBALAMIN 1000 mCg TABLET PO SCH (08:36)
[2019-09-29] MEDS: NEOMY SULF/BACITRAC ZN/POLY 28 GM OINT..GM. TP SCH ×2 (08:39→21:21)
--- NOTE | 2019-09-29 11:55 | NUR ---
Note Pt asleep all shift - no needs noted. IVF's infusing through right hand IV site. Call light within reach.
[2019-09-29 12:57] VITALS: BP_SYST 125
[2019-09-29] MEDS: guaiFENesin/DEXTROMETHORPHAN 10 ML UDC PO PRN ×2 (14:45→23:10)
[2019-09-29] MEDS ORDERED: LORazepam 1 MG TABLET PO ONE (14:45)
--- NOTE | 2019-09-29 15:40 | NUR ---
Note Pt was given Robitussin PO at 1445 - tp try and keep pt still so he can have CT of head done (pt does tend to get restless when scan being done, will not lay still - per previous cardiovascular technician.) Pt was just picked up by cardiovascular technician - Aryan via bed to CT dept for CT of head.
--- NOTE | 2019-09-29 16:00 | NUR ---
Note Pt back in room from CT dept. IVF's were reconnected and infusing at this time. Pt denies any needs. Tele unit attached and intact.
[2019-09-29 16:14] VITALS: BP_SYST 140
--- NOTE | 2019-09-29 18:15 | NUR ---
Note Pt resting in bed, no SOB/resp distress or pain/discomfort noted at this time. Tele unit attached and intact all shift. IV in right hand intact and patent infusing IVF's well. Pt was checked on q1' and PRN all shift for needs and care. No needs noted at this time. Call light within reach.
[2019-09-29 20:00] VITALS: BP_SYST 125
--- NOTE | 2019-09-29 20:00 | NUR ---
GIVEN REPORT @ START OF SHIFT, AERT WITH CONFUSION, RESPIRATIONS EVEN AND UNLABORED, ROOM AIR HAS HACKY DRY COUGH, HOB ELEVATED,SKIN INTACT, RFA # 18G INFUSING D51/2NS @ 60 ML/HR, INCONTIENENT OF URINE KEPT CLEAN AND DRY, TURNED AND REPOSITIONED Q 2 HRS,, TOLERATES NECTOR THICK FLUIDS WELL, REMAINS A DNR STATUS, SR'S UP X'S 3, CALL LIGHT WITHIN REACH, BED IN LOW POSITION,, NOTED BLANCHABLE SETH BOTTOM AND CURIAID APPLIED, WILL CONTINUE TO MONITOR.SRWFIRST DEGREE BLOCK/PACED ON TELE MONITOR.
[2019-09-29] MEDS: SIMVASTATIN 20 MG TABLET PO SCH (21:21)
--- NOTE | 2019-09-30 | NUR ---
RESTING QUIETLY IN BED AFTER HAVING COUGHING SPELL, GIVEN ROBITUSSIN COUGH SYRUP ORDERED, INCONT. OF URINE KEPT CLEAN AND DRY, WILL CONTINUE TO MONITOR.
[2019-09-30 02:24] VITALS: BP_SYST 138
--- NOTE | 2019-09-30 04:00 | NUR ---
CONTINUES TO REST QUIETY IN BED WITH EYES CLOSED, EASILY AROUSED, NO NOTED CHANGES IN PRESENT CONDITION, WILL CONTINUE TO MONITOR
[2019-09-30] MEDS: NORMAL SALINE 5 ML DISP.SYRIN IVF SCH ×2 (06:33→14:35)
[2019-09-30] MEDS: PIPERACILLIN/TAZO 4.5GM/DEX-IS 100 ML IV SCH ×2 (06:33→14:34)
[2019-09-30] MEDS: LEVOTHYROXINE SODIUM 0.025 MG TABLET PO SCH (06:34)
--- NOTE | 2019-09-30 07:35 | NUR ---
AM ROUNDS: PATIENT SLEEPING DURING ROUNDS. IV FLUIDS RUNNING AT RIGHT FOREARM IN PLACE. CALL LIGHT WITH IN REACH. BED LOCKED AT LOWEST POSITION. BED ALARM ON. NOT ANY DISTRESS.
[2019-09-30 07:40] VITALS: BP_SYST 138
[2019-09-30] MEDS: IPRATROPIUM/ALBUTEROL SULFATE 3 ML AMPUL.NEB (DUONEB) INH SCH (07:43)
[2019-09-30 08:30] VITALS: BP_SYST 131
[2019-09-30] MEDS: METOPROLOL TARTRATE 25 MG TABLET PO SCH (09:07)
--- NOTE | 2019-09-30 09:07 | NUR ---
MED PASS: CRUSHED MEDS WITH APPLE SAUCE GIVEN TO PATIENT.WELL TOLERATED.NO PROBLEM.
[2019-09-30] MEDS: NEOMY SULF/BACITRAC ZN/POLY 28 GM OINT..GM. TP SCH (09:08)
[2019-09-30] MEDS: CYANOCOBALAMIN 1000 mCg TABLET PO SCH (09:08)
--- NOTE | 2019-09-30 10:56 | NUR ---
Discharge Planning: DCP faxed pt referral to [facility] (f [phone] p [phone]) DCP to follow up Addendum: 09/30/19 at 1241 by Dea Yee DP [facility] (f [phone] p [phone]) Rm 31C, transport arranged with [facility] ([phone]) 3:00pm nurse made aware and patient packet taken to nurse station.
[2019-09-30 12:00] VITALS: BP_SYST 122
--- NOTE | 2019-09-30 12:43 | NUR ---
DC PLANNING Order to dc back to SNF. 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 Explained Medicare IM Letter, & gave ph for [employer] over ph. No Choice letter needed, pt lives @ [facility], going back & dtr wants pt to go back.
[2019-09-30 14:02] VITALS: BP_SYST 122
--- NOTE | 2019-09-30 15:36 | NUR ---
REPORT: REPORT GIVEN TO JAYLEN Mg RN FROM [facility] [place].
--- NOTE | 2019-09-30 15:55 | NUR ---
DC TRANSFER TO SNF NOTES: TRANSFER PACKETS GIVEN TO [facility]. PERSONAL BELONGINGS SEND TOGETHER WITH THE PATIENT. IV REMOVED,DRY GAUZE APPLIED,NO ACTIVE BLEEDING NOTED.[facility] TRANSPORTED PATIENT BACK TO [facility] IN STABLE CONDITION.
== END 2019-09-30 15:55 | DRG 177 ==
LOC: SED 17:12 → STU 20:34
PROVIDERS: ADMIT Family Medicine; ATTEND Family Medicine
DX: J69.0 Pneumonitis due to inhalation of food and vomit (principal); G93.41 Metabolic encephalopathy; I24.8 Other forms of acute ischemic heart disease; N17.9 Acute kidney failure, unspecified; E11.649 Type 2 diabetes mellitus with hypoglycemia without coma; I11.0 Hypertensive heart disease with heart failure; E03.9 Hypothyroidism, unspecified; E78.5 Hyperlipidemia, unspecified; F03.90 Unspecified dementia, unspecified severity, without behavioral disturbance, psychotic disturbance, mood disturbance, and anxiety; F20.9 Schizophrenia, unspecified; I50.9 Heart failure, unspecified; J20.9 Acute bronchitis, unspecified; I49.5 Sick sinus syndrome; R13.10 Dysphagia, unspecified; Z86.73 Personal history of transient ischemic attack (TIA), and cerebral infarction without residual deficits; Z95.0 Presence of cardiac pacemaker; I25.2 Old myocardial infarction
CPT/HCPCS: 36415; 36600; 71045; 71250-TC; 80048; 80053; 82550-TC; 82803-TC; 82962; 83036; 83605; 83880; 84443-TC; 84484; 85025; 85610-TC; 85730-TC; 86710; 87081; 92610-GN; 93005; 93306; 94640; 94760; 96374; 96375; 99285; G0378; J0696; J1630; J1650; J2543; J2930; J7613